=== PATIENT | male | born 1995 | race Caucasian/White ===

== ENCOUNTER 2022-11-01 15:51 | Emergency (ER) | payer SELFPAY ==
[2022-11-01] MEDS ORDERED: HYDROCODONE/APAP 10/325 TAB ONE (16:25)
--- NOTE | 2022-11-01 17:05 | RAD REPORT ---
EXAM DESCRIPTION: RAD - Forearm Right - 11/01/2022 4:57 pm CLINICAL HISTORY: Right arm pain FINDINGS: Old avulsion fracture ulnar styloid process No acute fracture or dislocation is seen. Small areas of increased density are present within the lateral soft tissues of the distal forearm. T hese may represent foreign bodies and should be correlated clinically
--- NOTE | 2022-11-01 17:06 | RAD REPORT ---
EXAM DESCRIPTION: RAD - Humerus Right - 11/01/2022 4:57 pm CLINICAL HISTORY: Right arm pain FINDINGS: No fracture is seen
--- NOTE | 2022-11-01 17:12 | RAD REPORT ---
EXAM DESCRIPTION: CT - Head C Spine Mpr Wo Con - 11/01/2022 4:56 pm CLINICAL HISTORY: Head and neck injury status post injury. Head and neck pain COMPARISON: None. TECHNIQUE: Computed axial tomography of the head and cervical spine was obtained. Sagittal and coronal reconstruction was performed. All CT scans are performed using dose optimization technique as appropriate and may include automated exposure control or mA/KV adjustment according to patient size. FINDINGS: An intracranial bleed is not seen. The ventricles are normal in caliber. No significant hypodensity within the brain. An extra-axial fluid collection is not noted. Fluid within the visualized sinuses and mastoids is not seen. Mild chronic sinusitis A cervical fracture is not visualized. No dislocation is noted. IMPRESSION: No acute intracranial abnormality is seen. A cervical fracture is not visualized. If the patient continues to have symptoms to suggest intracranial /spinal cord pathology then MRI wou ld be recommended
--- NOTE | 2022-11-01 17:14 | RAD REPORT ---
EXAM DESCRIPTION: RAD - Shoulder Right 2 View - 11/01/2022 4:57 pm CLINICAL HISTORY: Right shoulder pain FINDINGS: Oblique lucency within and the lateral scapula probably prominent trabecula. A nondisplace d fracture is considered less likely. No dislocation Small densities within the right supraclavicular soft tissue may represent foreign bodies
--- NOTE | 2022-11-01 17:47 | RAD REPORT ---
EXAM DESCRIPTION: RAD - Lumbar Spine 3 Views - 11/01/2022 5:15 pm CLINICAL HISTORY: Back pain FINDINGS: No fracture or dislocation is seen.
--- NOTE | 2022-11-01 18:19 | ER ---
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 Risk Assessment: Do you want to hurt yourself or someone else? Patient reports no desire to harm self or others. 15:54 Method Of Arrival: EMS iw 15:54 Acuity: RINA 3 iw Historical: - Allergies: 15:55 No Known Allergies; iw - Home Meds: 15:55 None [Active]; iw - PMHx: 15:55 None; iw ED Course: 15:54 Patient arrived in ED. iw 15:55 Triage completed. 15:57 Deyanira Khoury, RN is Primary Nurse. iw 15:58 Leno Villarreal PA is PHCP. [facility] 15:58 Deon Okeefe MD is Attending Physician. [facility] 16:58 CT Head C Spine In Process Unspecified. EDMS 16:59 Shoulder Right (2 View) XRAY In Process Unspecified. EDMS 16:59 Humerus Right XRAY In Process Unspecified. EDMS 16:59 Forearm Right XRAY In Process Unspecified. EDMS 17:17 Lumbar Spine (3 Views) XRAY In Process Unspecified. EDMS 18:18 David Dorsey MD is Referral Physician. [facility] Administered Medications: 16:20 Drug: Roslyn PO 10 mg-325 mg 1 tabs Route: PO; Outcome: 18:19 Discharge ordered by . [facility] 18:46 Patient left the ED. Signatures: Dispatcher [employer] EDMS Leno Villarreal PA PA Deyanira Thomas, RN RN iw
--- NOTE | 2022-11-01 18:20 | EDPHYS ---
Physician Documentation [facility] Name: Edward Ashraf Age: 27 yrs Sex: Male : 1995 Arrival Date: 11/01/2022 Time: 15:54 Bed 10 Private MD: ED Physician Deon Okeefe HPI: 11/01 15:58 This 27 yrs old Male presents to ER via EMS with complaints of Arm Injury. jmm 15:58 The patient or guardian complains of injury, pain. Onset: The symptoms/episode jmm began/occurred acutely, just prior to arrival. Is a 19-year-old male with no chronic medical conditions presents emerged part with complaints of headache, neck pain, right shoulder pain which radiates to the right wrist. Denies LOC, denies chest pain, denies abdominal pain, denies shortness of breath.. Historical: - Allergies: 15:55 No Known Allergies; iw - Home Meds: 15:55 None [Active]; iw - PMHx: 15:55 None; iw ROS: 15:58 Constitutional: Negative for fever, chills, and weight loss, Cardiovascular: Negative jmm for chest pain, palpitations, and edema, Respiratory: Negative for shortness of breath, cough, wheezing, and pleuritic chest pain. 15:58 Neck: Positive for pain with movement. 15:58 MS/extremity: Positive for pain. 15:58 Neuro: Positive for headache. 15:58 All other systems are negative. Exam: 15:58 Constitutional: This is a well developed, well nourished patient who is awake, alert, jmm and in no acute distress. Head/Face: atraumatic. Eyes: EOMI, no conjunctival erythema appreciated ENT: Moist Mucus Membranes Neck: Trachea midline, Supple Chest/axilla: Normal chest wall appearance and motion. Cardiovascular: Regular rate and rhythm. No edema appreciated Respiratory: Normal respirations, no respiratory distress appreciated Abdomen/GI: Non distended Back: Normal ROM Skin: General appearance color normal 15:58 Musculoskeletal/extremity: Right shoulder diffusely tender to palpation, pain on abduction, compartments are soft, full range of motion. To the right elbow, full student services vice president strength, neurovascular tact. 15:58 Skin: Appearance: Color: normal in color. 15:58 Neuro: Motor: is normal. 15:58 Psych: Behavior/mood is pleasant, cooperative. MDM: 15:58 Patient medically screened. [facility] 18:18 Differential diagnosis: closed fracture, contusion. Data reviewed: vital signs, nurses [facility] notes, radiologic studies. I considered the following discharge prescriptions or medication management in the emergency department Medications were administered in the Emergency Department. See MAR. Independent interpretation of the following test(s) in the Emergency Department X-Ray: My interpretation is No fracture appreciated. Counseling: I had a detailed discussion with the patient and/or guardian regarding: the historical points, exam findings, and any diagnostic results supporting the discharge/admit diagnosis, radiology results, the need for outpatient follow up, to return to the emergency department if symptoms worsen or persist or if there are any questions or concerns that arise at home. 11/01 16:03 Order name: CT Head C Spine; Complete Time: 17:16 [facility] 11/01 16:03 Order name: Shoulder Right (2 View) XRAY; Complete Time: 17:16 [facility] 11/01 16:03 Order name: Humerus Right XRAY; Complete Time: 17:09 [facility] 11/01 16:03 Order name: Forearm Right XRAY; Complete Time: 17:09 [facility] 11/01 16:24 Order name: Lumbar Spine (3 Views) XRAY; Complete Time: 17:49 [facility] 11/01 18:07 Order name: Sling; Complete Time: 18:43 [facility] Administered Medications: 16:20 Drug: [place] PO 10 mg-325 mg 1 tabs Route: PO; iw Disposition Summary: 11/01/22 18:19 Discharge Ordered Location: Home [facility] Condition: Stable [facility] Diagnosis - Other sprain of right shoulder joint jm - Unspecified injury of head, initial encounter [facility] Followup: [facility] - With: David Dorsey MD - When: 2 - 3 days - Reason: Recheck today's complaints, Continuance of care, Re-evaluation by your physician Discharge Instructions: - Discharge Summary Sheet [facility] - Head Injury, Adult jm - Head Injury, Adult, [id number]-af-Teed [facility] Forms: - Work release form [facility] - Medication Reconciliation Form [facility] - Thank You Letter [facility] - Antibiotic Education [facility] - Prescription Opioid Use [facility] Prescriptions: - Diclofenac Sodium 75 mg Oral Tablet Sustained Release - take 1 tablet by ORAL route 2 times per day; 30 tablet; Refills: 0, Product jessica Selection Permitted Signatures: Dispatcher [employer] EDMS Leno Villarreal PA PA jmm Williams, Irene RN RN iw Corrections: (The following items were deleted from the chart) 16:58 16:04 Elbow Right 3 View+[email or web address] ordered. EDMS EDMS
== END 2022-11-01 18:46 | disposition home or self-care (01) ==
LOC: ER 15:51
DX: S43.491A Other sprain of right shoulder joint, initial encounter (principal); S09.90XA Unspecified injury of head, initial encounter; R51.9 Headache, unspecified
CPT/HCPCS: 70450; 72100; 72125